=== PATIENT | female | born 1995 | race Caucasian/White ===

== ENCOUNTER 2018-02-20 13:02 | Emergency (ER) | payer MEDICAID ==
[~2018-02-20] VITALS: Ht 172.7 cm; Wt 79.0 kg
[2018-02-20] MEDS ORDERED: proCHLORperazine 10 MG/2 ml inj IM ONE (13:40)
[2018-02-20] MEDS ORDERED: ketorolac tromethamine 15mg/ml inj. IM ONE (13:40)
[2018-02-20] MEDS ORDERED: SUMAtriptan succ. 6 MG/0.5ml vial SQ ONE (13:40)
[2018-02-20 14:31] VITALS: BP 104/59
== END 2018-02-20 14:32 | disposition home or self-care (01) ==
LOC: ER 13:03
DX: G43.509 Persistent migraine aura without cerebral infarction, not intractable, without status migrainosus (principal); F12.90 Cannabis use, unspecified, uncomplicated; Z88.6 Allergy status to analgesic agent; Z91.018 Allergy to other foods
CPT/HCPCS: 96372; 99283; J0780; J1885; J3030

== ENCOUNTER 2025-02-11 12:22 | Emergency (ER) | payer MEDICAID ==
[~2025-02-11] VITALS: Ht 172.7 cm; Wt 68.7 kg
[2025-02-11 12:24] VITALS: BP 128/82; PULSE 84; RESP 18; O2SAT 98
[2025-02-11] MEDS ORDERED: BENZ-38 PO (13:53)
[2025-02-11] MEDS ORDERED: ALBU8HFA INH (13:53)
--- NOTE | 2025-02-11 13:53 | Physician Documentation ---
History of Present Illness ~ Chief Complaint: Cold, cough & congestion Stated Complaint: FLU SYMPTOMS Time Seen by MD: 13:20 Primary Medical Doctor: [facility] Source: patient Mode of Arrival: POV Exam Limitations: no limitations HPI 29-year-old female here with cough that started two days ago. Cough is occ asionally productive states sputum is brown in color. Denies any blood. Denies shortness of breath, fever, chills, sore throat, abdominal pain or nausea vomiting. No rashes. No pre arrival treatment. Medication Reconciliation Allergies: Coded Allergies: acetaminophen (Verified Allergy, Mild, hives, 02/11/25) hydrocodone (Verified Allergy, Mild, hives, 02/11/25) pineapple (Unverified Allergy, Unknown, 02/11/25) Scheduled Benzonatate* (Benzonatate*), 1-2 CAP PO Q8H Scheduled PRN albuterol inhaler (Pro-Air Inhaler), 2 PUFFS INH Q4HPRN PRN for wheezing Past Medical History Past Medical History: Headache, Migraine Past Surgical History: noncontributory Alcohol Use: Rarely Drug Use: marijuana Lives In: Home Review of Systems All Other Systems at this time: Reviewed and Negative Physical Exam Vital Signs: Temperature: 98.3, Source: Temporal, Heart Rate: 84, Respiratory Rate: 18, BP: 128/82, Pulse Oximetry: 98, Weight: 68.700 Oxygen Flow Rate: 0 Physical Exam General Appearance: Alert, WD/WN. NAD. HEENT: NCAT, PERRL, EOMI. no sinus ttp. posterior pharyngeal wall normal. Neck: Supple, trachea midline. no cervical lad or ttp. Cardiovascular: RRR. No m/r/g. Lungs: Rhonchi throughout posterior lungs, no wheezing, no respiratory distress, no coughing on exam Extremities: Normal inspection. No edema. Skin: Warm/dry, normal color Neurological: Alert and oriented x4, normal gait. Psychiatric: Affect congruent with mood. Progress Results/Orders Results/Orders Vital Signs 02/11/25 02/11/25 12:24 14:05 Temp 98.3 98.3 Pulse 84 Resp 18 B/P (MAP) 128/82 Pulse Ox 98 O2 Flow Rate 0 Medical Decision Making Additional information obtaine: N/A Findings n/a Differential Dx:Considerations: Include: Allergic rhinitis, Influenza, Otitis media, Peritonsillar abscess, Pharyngitis-Diphtheria, Pharyngitis-Streptoccal, Pharyngitis-Viral, Pneumonia, Pnuemonitis, Sinusitis, URI, Other Departure Time of Disposition: 13:53 Disposition: 01 HOME / SELF CARE / HOMELESS Impression: Primary Impression: Acute bronchitis Qualified Codes: J20.9 - Acute bronchitis, unspecified Condition: Stable Discharge Instructions: Upper Respiratory Infection, Adult Departure Forms: Excuse form Work or School Excused From: Work Excuse beginning now through the following date: Feb 12, 2025 May Return but still avoid physical Activity from now until: Feb 13, 2025 Referrals: NO PRIMARY CARE PROVIDER (PCP) Prescriptions albuterol inhaler (Pro-Air Inhaler) 8.5 Gm Inhaler 2 PUFFS INH Q4HPRN PRN for wheezing for 30 Days, #18 GM Prov: LUTHER DE GUZMAN 02/11/25 Benzonatate* (Benzonatate*) 100 Mg Capsule 1-2 CAP PO Q8H for cough for 5 Days, #30 CAP Prov: LUTHER DE GUZMAN 02/11/25 Education Educated: Patient Educated regarding: diagnosis, treatment, need for follow up Signature Scribe Signature: x Attestation: LUTHER Vazquez Feb 11, 2025 13:53
[2025-02-11 14:05] VITALS: TEMP 98.3
== END 2025-02-11 14:10 | disposition home or self-care (01) ==
LOC: ER 12:23
DX: J20.9 Acute bronchitis, unspecified (principal); Z88.5 Allergy status to narcotic agent
CPT/HCPCS: 99283